=== PATIENT | male | born 1970 | race Caucasian/White ===

== ENCOUNTER 2019-06-12 12:38 | Day surgery (SDC) | payer BC ==
[2019-06-12 12:56] VITALS: RESP 16; TEMP 98.5
[2019-06-12] MEDS ORDERED: LACTATED RINGERS 1,000 ML IV ONE (13:05)
[2019-06-12] MEDS ORDERED: LIDOCAINE 1% 20 ML VIAL (10MG/ML) FOR IV START INTRADERMA ONE (13:06)
[2019-06-12] MEDS ORDERED: PROPOFOL 10 MG/ML 20 ML VIAL IV ONE (13:41)
--- NOTE | 2019-06-12 14:20 | P.PCN ---
Date of Procedure: 06/12/19 Description of Procedure: BRIEF HISTORY: Pleasant 48-year-old male who presents for outpatient evaluation with colonoscopy for family history of colon cancer and a personal history of colon polyps. The patient reports one polyp found on prior colonoscopies. He has a family history of colon cancer in his father who in his mid 30s from colon cancer. He denies any change in bowel habits, abdominal pain or blood per rectum. PROCEDURE PERFORMED: Colonoscopy with polypectomy. PREOPERATIVE DIAGNOSIS: Family history of colon cancer, personal history of colon polyp, last colonoscopy 7 years ago. ESTIMATED BLOOD LOSS: Minimal. IV sedation per Anesthesia. PROCEDURE: After informed consent was obtained, the patient, was brought into the endoscopy unit. IV sedation was administered by Anesthesia under continuous monitoring. Digital rectal examination was normal. Initially the Olympus CF-190 flexible video colonoscope was then inserted in the rectum, gradually advanced into the cecum without any difficulty. Careful examination was performed as the scope was gradually being withdrawn. Ileocecal valve and the appendiceal orifice were visualized and appeared normal. Prep was excellent. Mucosa of the cecum, ascending colon, transverse colon, descending colon, sigmoid colon, and rectum appeared normal. Diminutive sessile 2 mm descending colon polyp removed with cold forceps. Mild internal hemorrhoids. Retroflexion was performed in the rectum and no lesions were seen. The patient tolerated the procedure well. IMPRESSION: Normal-appearing colon from rectum to cecum. Diminutive descending colon polyp removed with cold forceps. RECOMMENDATIONS: Findings of this examination were discussed with the patient and his . Await pathology from polypectomy. Anticipate repeat colonoscopy in 5 years for personal is free of polyps and family history of colon cancer. Okay to resume diet and medications..
[2019-06-12 14:53] VITALS: BP 131/79; PULSE 69
== END 2019-06-12 15:09 | disposition home or self-care (01) ==
LOC: ORWHC2ENDO 12:38
PROVIDERS: ATTEND Internal Medicine
DX: Z12.11 Encounter for screening for malignant neoplasm of colon (principal); Z80.0 Family history of malignant neoplasm of digestive organs; Z86.010 Personal history of colon polyps; D12.4 Benign neoplasm of descending colon
CPT/HCPCS: 88305; 45380; J2704

== ENCOUNTER 2023-10-07 17:14 | Observation (INO) | payer BC, OTHER ==
[2023-10-07] MEDS ORDERED: SODIUM CHLORIDE 0.9% 1,000 ML IV STA (18:11)
[2023-10-07] MEDS ORDERED: MORPHINE SULFATE 4 MG/ML SYRINGE IVP STA (18:12)
[2023-10-07] MEDS ORDERED: ONDANSETRON 4 MG/2 ML VIAL IVP STA (18:34)
[2023-10-07 18:48] LABS: Basophils % (A) 0 %; Eosinophils % (A) 0 %; HCT 52.1 % (39.0-53.0); HGB 17.9 gm/dL (13.0-17.5); Lymphocytes # (A) 0.7 k/uL (1.0-4.8); Lymphocytes % (A) 4 %; MCH 30.8 pg (25.0-35.0); MCHC 34.4 g/dL (31.0-37.0); MCV 89.4 fL (80.0-100.0); Mean Platelet Volume 7.9; Monocytes # (A) 0.5 k/uL (0-1.0); Monocytes % (A) 3 %; Neutrophils # (A) 16.3 k/uL (1.3-7.7); Neutrophils % (A) 92 %; Platelet Count 331 k/uL (150-450); RBC 5.82 m/uL (4.30-5.90); RDW 12.8 % (11.5-15.5); WBC 17.7 k/uL (3.8-10.6)
[2023-10-07 19:02] LABS: ALT 43 U/L (4-49); AST 29 U/L (17-59); African American GFR (CKD) >90 (>60 ml/min/1.73 sqM); Albumin 4.9 g/dL (3.5-5.0); Alkaline Phosphatase 71 U/L (38-126); Amylase 44 U/L (30-110); Anion Gap 19 mmol/L; Blood Urea Nitrogen 19 mg/dL (9-20); Calcium 10.2 mg/dL (8.4-10.2); Carbon Dioxide 17 mmol/L (22-30); Chloride 103 mmol/L (98-107); Glucose 134 mg/dL (74-99); INR 0.9 (<1.2); Lipase 60 U/L (23-300); Magnesium 1.9 mg/dL (1.6-2.3); Non-African American GFR(CKD) >90 (>60 ml/min/1.73 sqM); Partial Thromboplastin Time 22.4 sec (22.0-30.0); Potassium 4.9 mmol/L (3.5-5.1); Prothrombin Time 10.3 sec (10.0-12.5); Sodium 139 mmol/L (137-145); Total Bilirubin 1.5 mg/dL (0.2-1.3); Total Protein 7.9 g/dL (6.3-8.2)
[2023-10-07] MEDS ORDERED: KETOROLAC 15 MG/ML 1 ML VIAL IVP STA (20:45)
--- NOTE | 2023-10-07 21:45 | US ---
EXAMINATION TYPE: US scrotum with doppler. Grayscale and color Doppler Duplex imaging performed of leonel child scrotum. DATE OF EXAM: 10/07/2023 COMPARISON: NONE CLINICAL INDICATION: Male, 53 years old with history of testicular pain; Left testicular pain and ten derness x 2 months. Pt states the pain goes up to his abdomen EXAM MEASUREMENTS: TESTICLES: Right Testicle: 5.3 x 2.9 x 2.2 cm Left Testicle: 4.8 x 3.1 x 2.1 cm EPIDIDYMIS HEAD: Right Epididymis: 1 cm Left Epididymis: 0.6 cm. Epi cyst measuring 0.6 x 0.3cm Doppler performed to assess for testicular vascularity; good bilateral color flow and waveforms are s een. There is no evidence of testicular torsion. Presence of hydroceles: No Presence of varicoceles: Yes on left side IMPRESSION: 1. No evidence of testicular torsion or mass. 2. Small left epididymal cyst. 3. Left-sided varicocele.
--- NOTE | 2023-10-07 21:50 | XR ---
EXAMINATION TYPE: XR chest 2V DATE OF EXAM: 10/07/2023 7:19 PM CLINICAL INDICATION:Male, 53 years old with history of Chest Pain; [facility] COMPARISON: None TECHNIQUE: XR chest 2V. Frontal PA and lateral views of the chest. FINDINGS: Lines/Tubes: EKG leads overlie the chest. No indwelling lines are seen. Heart/mediastinum: Cardiomediastinal silhouette is well defined. Heart appears mildly enlarged. Med iastinum appears normal. Pulmonary vascularity: Not increased, Lungs/Pleura: Low lung volumes with bibasilar opacities likely due to atelectasis. There is otherwise no evidence of pleural effusion, focal consolidation, or pneumothorax. Musculoskeletal: No acute osseous abnormality demonstrated in the limits of the exam. Degenerative c hanges of the spine and shoulders. Other findings: None. IMPRESSION: Low lung volume exam with hypoventilatory changes. Otherwise no acute finding.
--- NOTE | 2023-10-07 22:07 | CT ---
EXAMINATION TYPE: CT abdomen pelvis w con CT DLP: 1317.7 mGycm, Automated exposure control for dose reduction was used. DATE OF EXAM: 10/07/2023 8:41 PM COMPARISON: None CLINICAL INDICATION:Male, 53 years old with history of abdominal pain; Lower left abdominal/scrotum p ain that radiates down left leg x 2 months TECHNIQUE: Axial CT of the abdomen and pelvis. Sagittal and coronal reformats were created on a [employer] workstation. Contrast used:100 mL of Isovue 300 with IV Contrast, (none if empty) Oral contrast used: without Oral Contrast (none if empty) FINDINGS: LOWER CHEST: Mild dependent atelectasis. Tiny 2 mm subpleural nodule in each lung base. No pleural ef fusion. Heart size upper normal. Moderate coronary artery calcifications. ABDOMEN LIVER: Unremarkable GALLBLADDER AND BILE DUCTS: Unremarkable. PANCREAS: Unremarkable. SPLEEN: Unremarkable. ADRENAL GLANDS: Unremarkable. KIDNEYS AND URETERS: Kidneys enhance symmetrically. There is no evidence of hydronephrosis. PELVIS BLADDER: Unremarkable REPRODUCTIVE: Nonenlarged prostate. Pelvic phleboliths. ABDOMEN & PELVIS STOMACH AND BOWEL: Stomach and small bowel are nondistended, no evidence of obstruction. Appendix is not identified with certainty, however there is no inflammatory process seen in the RLQ . Some stool throughout the colon without focal inflammatory process seen. Several scattered colonic diverticula without evidence of diverticulitis. PERITONEUM/RETROPERITONEUM: No evidence of pneumoperitoneum or free fluid. Debra mesentery appearance in the abdomen, with several associated nonenlarged nodes. VASCULATURE: Mild calcification of the aorta. No evidence of aneurysm. MUSCULOSKELETAL: No acute osseous abnormalities. Mild degenerative changes of the visualized spine. LYMPH NODES: No gross evidence for lymphadenopathy. SOFT TISSUE/ABDOMINAL WALL: Small fat-containing left inguinal hernia. IMPRESSION: 1. No evidence of inflammatory or obstructive process in the scope of the exam. 2. Debra mesentery appearance in the abdomen. Differential considerations are broad, but include: me senteric panniculitis, idiopathic, cirrhosis, sequela of adjacent inflammation (including appendiciti s and IBD/Crohn's disease), mesenteric venous thrombosis, rarely neoplasms (such as lymphoma or infil tration by GI adenocarcinoma).
[2023-10-07] MEDS ORDERED: cefTRIAXone IN SWFI 1,000 MG/10 ML SYRINGE IVP STA (22:35)
[2023-10-07] MEDS ORDERED: AZITHROMYCIN 500 MG in SODIUM CHLORIDE 0.9% 250 ML IVPB STA (22:35)
[2023-10-07] MEDS ORDERED: NALOXONE 0.4 MG/ML 1 ML VIAL IV PRN (22:38)
[2023-10-07] MEDS ORDERED: MORPHINE SULFATE 4 MG/ML SYRINGE IV PRN (22:38)
[2023-10-07] MEDS ORDERED: ACETAMINOPHEN TAB 325 MG TAB PO PRN (22:38)
[2023-10-07] MEDS ORDERED: ONDANSETRON 4 MG/2 ML VIAL IVP PRN (22:38)
[2023-10-07] MEDS ORDERED: KETOROLAC 15 MG/ML 1 ML VIAL IVP PRN (22:38)
[2023-10-07] MEDS ORDERED: SODIUM CHLORIDE 0.9% 1,000 ML IV SCH (22:45)
--- NOTE | 2023-10-07 23:11 | ED ---
General Adult HPI - General Chief complaint: Arrhythmia/Palpitations Stated complaint: vomiting abd pain Time Seen by Provider: 10/07/23 18:00 Source: patient Mode of arrival: wheelchair Limitations: no limitations - History of Present Illness Initial comments: 53-year-old male presenting with chief complaint of "my heart is racing". Patient states that he has had episodes like this in the past and he is normally able to calm himself, however today the palpitations were not stopping. Patient has also been experiencing several episodes of vomiting ever since waking up today. He admits to vague abdominal pain as well as left-sided groin pain. He admits to shortness of breath. He denies chest pain. No hematemesis, hematochezia, melena. No diarrhea or constipation. No fevers or chills. No cough, congestion, sore throat. - Related Data Home Medications Medication Instructions Recorded Confirmed Cholecalciferol [Vitamin D3 (25 25 mcg PO HS 10/07/23 10/07/23 Mcg = 1000 Iu)] Fluticasone Nasal [place] [Flonase 1 spray EA NOSTRIL DAILY PRN 10/07/23 10/07/23 Nasal [place]] Multivitamins, Thera [Multivitamin 1 tab PO HS 10/07/23 10/07/23 (formulary)] diphenhydrAMINE HCL [Benadryl] 25 mg PO HS 10/07/23 10/07/23 Allergies Allergy/AdvReac Type Severity Reaction Status Date / Time No Known Allergies Allergy Verified 10/07/23 19:36 Review of Systems ROS Statement: Those systems with pertinent positive or pertinent negative responses have been documented in the HPI. ROS Other: All systems not noted in ROS Statement are negative. Past Medical History Past Medical History: No Reported History History of Any Multi-Drug Resistant Organisms: None Reported Past Surgical History: Orthopedic Surgery Additional Past Surgical History / Comment(s): RIGHT ROTATOR CUFF. Past Anesthesia/Blood Transfusion Reactions: No Reported Reaction Past Psychological History: No Psychological Hx Reported Smoking Status: Never smoker Past Alcohol Use History: Rare Past Drug Use History: None Reported General Exam Limitations: no limitations General appearance: alert, in no apparent distress Head exam: Present: atraumatic, normocephalic, normal inspection Eye exam: Present: normal appearance, EOMI Neck exam: Present: normal inspection Respiratory exam: Present: normal lung sounds bilaterally. Absent: respiratory distress, wheezes, rales, rhonchi, stridor Cardiovascular Exam: Present: normal rhythm, tachycardia, normal heart sounds. Absent: systolic murmur, diastolic murmur, rubs, gallop, clicks GI/Abdominal exam: Present: soft, tenderness. Absent: distended, guarding, rebound, rigid Neurological exam: Present: alert, oriented X3 Psychiatric exam: Present: normal affect, normal mood Skin exam: Present: warm, dry, intact, normal color. Absent: rash Course Vital Signs 10/07/23 10/07/23 10/07/23 17:15 18:39 19:10 Temperature 99.1 F 99.2 F Pulse Rate 143 H 122 H 116 H Respiratory 16 22 16 Rate Blood Pressure 137/84 122/94 108/84 O2 Sat by Pulse 99 97 92 L Oximetry 10/07/23 10/07/23 10/07/23 19:40 20:10 20:20 Temperature Pulse Rate 123 H 124 H 121 H Respiratory 25 H 27 H 28 H Rate Blood Pressure 124/85 123/79 99/77 O2 Sat by Pulse 90 L 93 L 92 L Oximetry 10/07/23 20:50 Temperature Pulse Rate 118 H Respiratory 23 Rate Blood Pressure 126/81 O2 Sat by Pulse 94 L Oximetry Medical Decision Making - Medical Decision Making Was pt. sent in by a medical professional or institution (RAHUL Manuel, MACHINERY REPAIR MAINTENANCE SUPERVISOR, urgent care, hospital, or alf...) When possible be specific @ -No Did you speak to anyone other than the patient for history (EMS, parent, family, police, friend...)? What history was obtained from this source @ -No Did you review nursing and triage notes (agree or disagree)? Why? @ -I reviewed and agree with nursing and triage notes Were old charts reviewed (outside hosp., previous admission, EMS record, old EKG, old radiological studies, urgent care reports/EKG's, alf records)? Report findings @ -No old charts were reviewed Differential Diagnosis (chest pain, altered mental status, abdominal pain women, abdominal pain men, vaginal bleeding, weakness, fever, dyspnea, syncope, headache, dizziness, GI bleed, back pain, seizure, CVA, palpatations, mental health, musculoskeletal)? @ -Differential Palpitations Ventricular arrhythmias, atrial arrhythmias, myocardial infarction, anemia, thyrotoxicosis, electrolyte imbalance, hypokalemia, pulmonary embolism, pulmonary disease, drugs, alcohol, anxiety, stress.... This is not meant to be an all-inclusive list. EKG interpreted by me (3pts min.). @ -Sinus tachycardia ventricular rate 141. MA interval 124. QRS 96. QT 295. QTC 377. X-rays interpreted by me (1pt min.). @ -Chest x-ray shows low lung volume exam with hypoventilatory changes. O therwise no acute findings CT interpreted by me (1pt min.). @ -No evidence of inflammatory or obstructive process within the scope of the exam. Debra mesentery appearance in the abdomen. Differential considerations are broad, but includes mesenteric panniculitis, idiopathic, cirrhosis, sequelae of adjacent inflammation, mesenteric venous thrombosis, rarely neoplasms U/S interpreted by me (1pt. min.). @ -No evidence of testicular torsion or mass. Small left epididymal cyst. Small left-sided varicocele What testing was considered but not performed or refused? (CT, X-rays, U/S, labs)? Why? @ -None What meds were considered but not given or refused? Why? @ -None Did you discuss the management of the patient with other professionals (professionals i.e. , PA, MACHINERY REPAIR MAINTENANCE SUPERVISOR, lab, RT, psych nurse, secondary social studies teacher, test borer, teacher, ship's electronic warfare officer, transplant case manager)? Give summary @ -I spoke with Suyapa Campa from [facility] who accepted admission Was smoking cessation discussed for >3mins.? @ -No Was critical care preformed (if so, how long)? @ -No Were there social determinants of health that impacted care today? How? (Ab elessness, low income, unemployed, alcoholism, drug addiction, transportation, low edu. Level, literacy, decrease access to med. care, half-way, rehab)? @ -No Was there de-escalation of care discussed even if they declined (Discuss DNR or withdrawal of care, Hospice)? DNR status @ -No What co-morbidities impacted this encounter? (DM, HTN, Smoking, COPD, CAD, Cancer, CVA, ARF, Chemo, Hep., AIDS, mental health diagnosis, sleep apnea, morbid obesity)? @ -None Was patient admitted / discharged? Hospital course, mention meds given and route, prescriptions, significant lab abnormalities, going to OR and other pertinent info. @ -53-year-old male presenting with chief complaint of my heart is racing, shortness of breath, vomiting, vague abdominal pain. History and physical examination are conducted. Patient is initially tachycardic ranging from the 120s to 140s, he is afebrile. Abdomen is diffusely tender. WBC 17.7. Negative d-dimer and troponin. He is negative for influenza, RSV, and Covid. Chest x- ray shows hypoventilatory changes. Scrotal ultrasound shows no evidence of torsion. CT of the abdomen and pelvis shows no evidence of inflammatory or obst ructive process. On reassessment patient remains tachycardic, he is mildly hypoxic with oxygen saturation in the low 90%'s, and he is mildly tachypneic. Given the patient's unexplained tachycardia and leukocytosis, blood cultures and pro-calcitonin will be drawn. Patient will be admitted for observation. He is treated empirically with Rocephin and azithromycin. Patient is agreeable with this plan. I discussed this case with my attending Dr. Cadena Undiagnosed new problem with uncertain prognosis? @ -No Drug Therapy requiring intensive monitoring for toxicity (Heparin, Nitro, Insulin, Cardizem)? @ -No Were any procedures done? @ -No Diagnosis/symptom? @ -Unexplained tachycardia Acute, or Chronic, or Acute on Chronic? @ -Acute Uncomplicated (without systemic symptoms) or Complicated (systemic symptoms)? @ -Complicated Side effects of treatment? @ -No Exacerbation, Progression, or Severe Exacerbation? @ -No Poses a threat to life or bodily function? How? (Chest pain, [place], CA, pneumonia, PE, COPD, DKA, ARF, appy, cholecystitis, CVA, Diverticulitis, Homicidal, S uicidal, threat to staff... and all critical care pts) @ -Yes Diagnosis/symptom? @Leukocytosis Acute, or Chronic, or Acute on Chronic? @Acute Uncomplicated (without systemic symptoms) or Complicated (systemic symptoms)? @Complicated Side effects of treatment? @ none Exacerbation, Progression, or Severe Exacerbation] @ no Poses a threat to life or bodily function? @Yes Diagnosis/symptom? @Hypoxia Acute, or Chronic, or Acute on Chronic? @Acute Uncomplicated (without systemic symptoms) or Complicated (systemic symptoms)? @Complicating Side effects of treatment? @ none Exacerbation, Progression, or Severe Exacerbation] @ no Poses a threat to life or bodily function? @Yes - Lab Data Result diagrams: 10/07/23 18:32 10/07/23 18:32 Lab Results 10/07/23 10/07/23 10/07/23 Range/Units 18:32 18:32 18:32 WBC 17.7 H (3.8-10.6) k/uL RBC 5.82 (4.30-5.90) m/uL Hgb 17.9 H (13.0-17.5) gm/dL Hct 52.1 (39.0-53.0) % MCV 89.4 (80.0-100.0) fL MCH 30.8 (25.0-35.0) pg MCHC 34.4 (31.0-37.0) g/dL RDW 12.8 (11.5-15.5) % Plt Count 331 (150-450) k/uL MPV 7.9 Neutrophils % 92 % Lymphocytes % 4 % Monocytes % 3 % Eosinophils % 0 % Basophils % 0 % Neutrophils # 16.3 H (1.3-7.7) k/uL Lymphocytes # 0.7 L (1.0-4.8) k/uL Monocytes # 0.5 (0-1.0) k/uL Eosinophils # 0.0 (0-0.7) k/uL Basophils # 0.0 (0-0.2) k/uL PT 10.3 (10.0-12.5) sec INR 0.9 (<1.2) APTT 22.4 (22.0-30.0) sec D-Dimer 0.35 (<0.60) mg/L FEU Sodium 139 (137-145) mmol/L Potassium 4.9 (3.5-5.1) mmol/L Chloride 103 (98-107) mmol/L Carbon Dioxide 17 L (22-30) mmol/L Anion Gap 19 mmol/L BUN 19 (9-20) mg/dL Creatinine 0.91 (0.66-1.25) mg/dL Est GFR (CKD-EPI)AfAm >90 (>60 ml/min/1.73 sqM) Est GFR (CKD-EPI)NonAf >90 (>60 ml/min/1.73 sqM) Glucose 134 H (74-99) mg/dL Calcium 10.2 (8.4-10.2) mg/dL Magnesium 1.9 (1.6-2.3) mg/dL Total Bilirubin 1.5 H (0.2-1.3) mg/dL AST 29 (17-59) U/L ALT 43 (4-49) U/L Alkaline Phosphatase 71 (38-126) U/L Troponin I (0.000-0.034) ng/mL Total Protein 7.9 (6.3-8.2) g/dL Albumin 4.9 (3.5-5.0) g/dL Amylase 44 (30-110) U/L Lipase 60 (23-300) U/L Influenza Type A (PCR) (Not Detectd) Influenza Type B (PCR) (Not Detectd) RSV (PCR) (Not Detectd) SARS-CoV-2 (PCR) (Not Detectd) 10/07/23 10/07/23 Range/Units 18:32 18:51 WBC (3.8-10.6) k/uL RBC (4.30-5.90) m/uL Hgb (13.0-17.5) gm/dL Hct (39.0-53.0) % MCV (80.0-100.0) fL MCH (25.0-35.0) pg MCHC (31.0-37.0) g/dL RDW (11.5-15.5) % Plt Count (150-450) k/uL MPV Neutrophils % % Lymphocytes % % Monocytes % % Eosinophils % % Basophils % % Neutrophils # (1.3-7.7) k/uL Lymphocytes # (1.0-4.8) k/uL Monocytes # (0-1.0) k/uL Eosinophils # (0-0.7) k/uL Basophils # (0-0.2) k/uL PT (10.0-12.5) sec INR (<1.2) APTT (22.0-30.0) sec D-Dimer (<0.60) mg/L FEU Sodium (137-145) mmol/L Potassium (3.5-5.1) mmol/L Chloride (98-107) mmol/L Carbon Dioxide (22-30) mmol/L Anion Gap mmol/L BUN (9-20) mg/dL Creatinine (0.66-1.25) mg/dL Est GFR (CKD-EPI)AfAm (>60 ml/min/1.73 sqM) Est GFR (CKD-EPI)NonAf (>60 ml/min/1.73 sqM) Glucose (74-99) mg/dL Calcium (8.4-10.2) mg/dL Magnesium (1.6-2.3) mg/dL Total Bilirubin (0.2-1.3) mg/dL AST (17-59) U/L ALT (4-49) U/L Alkaline Phosphatase (38-126) U/L Troponin I <0.012 (0.000-0.034) ng/mL Total Protein (6.3-8.2) g/dL Albumin (3.5-5.0) g/dL Amylase (30-110) U/L Lipase (23-300) U/L Influenza Type A (PCR) Not Detected (Not Detectd) Influenza Type B (PCR) Not Detected (Not Detectd) RSV (PCR) Not Detected (Not Detectd) SARS-CoV-2 (PCR) Not Detected (Not Detectd) Disposition Clinical Impression: Tachycardia, Leukocytosis, Hypoxia Disposition: ADMITTED IP TO THIS HOSP Condition: Fair Referrals: Joseph Lopez MD [Primary Care Provider] - 1-2 days Time of Disposition: 23:10
[2023-10-08 05:05] LABS: Amorphous Sediment,Urine Rare /hpf; Appearance,Urine Clear (Clear); Bacteria,Urine Rare /hpf; Bilirubin,Urine Negative (Negative); Blood,Urine Negative (Negative); Color,Urine Yellow; Glucose,Urine (UA) Negative (Negative); Hyaline Casts,Urine 3 /lpf (0-2); Ketones,Urine Negative (Negative); Leukocyte Esterase,Urine Negative (Negative); Mucus,Urine Few /hpf; Nitrite,Urine Negative (Negative); Protein,Urine 1+ (Negative); RBC,Urine 1 /hpf (0-5); Squamous Epithelial Cell,Urine <1 /hpf (0-4); Urobilinogen,Urine <2.0 mg/dL (<2.0); WBC,Urine 3 /hpf (0-5)
[2023-10-08] MEDS ORDERED: FLUTICASONE 50MCG/SPRAY NASAL 16GM EA NOSTRIL PRN (05:15)
[2023-10-08 06:12] LABS: Specific Gravity,Urine >1.050 (1.001-1.035)
[2023-10-08 07:14] LABS: Basophils % (A) 0 %; Eosinophils % (A) 0 %; HCT 42.4 % (39.0-53.0); Lymphocytes # (A) 0.4 k/uL (1.0-4.8); Lymphocytes % (A) 5 %; MCH 31.3 pg (25.0-35.0); MCHC 33.8 g/dL (31.0-37.0); MCV 92.5 fL (80.0-100.0); Mean Platelet Volume 6.9; Monocytes # (A) 0.3 k/uL (0-1.0); Monocytes % (A) 4 %; Neutrophils # (A) 7.4 k/uL (1.3-7.7); Neutrophils % (A) 90 %; Platelet Count 232 k/uL (150-450); RBC 4.58 m/uL (4.30-5.90); RDW 13.1 % (11.5-15.5); WBC 8.2 k/uL (3.8-10.6)
[2023-10-08 07:15] LABS: HGB 14.3 gm/dL (13.0-17.5)
[2023-10-08] MEDS ORDERED: PANTOPRAZOLE 40 MG/10 ML VIAL IVP SCH (11:15)
--- NOTE | 2023-10-08 11:20 | P.HPIM ---
History of Present Illness 53-year-old a pleasant male came in with compensative for the racing heart found to have sinus tachycardia. Patient is a day before had flulike symptoms along with abdominal pain nausea patient abdominal pain is very specific in the right lower abdomen along with the suprapubic area. Patient was also diagnosed with varicocele for which patient is supposed to see urology as an outpatient. Patient denied any chest pain regarding his palpitations patient has sinus tachycardia which improved with IV fluids. Patient TSH is within normal limits patient's d-dimer is negative patient is bit hypoxic and also snores probably sleep apnea. CT of the chest and abdomen were obtained which showed significant nonspecific findings showing hazy mesentery with a differential being mesenteric panic colitis, Crohn's disease possibility of which is extremely low and patient clinically doesn't appear to have cirrhosis plus one of the differentials on the CAT scan. Patient had a low-grade fever which resolved at this time patient was given a Rocephin chest x-ray did not show any pneumonia area is within normal limits abdominal pain completely resolved patient may have had viral illness which resolved at this time. Patient is negative for COVID-19, influenza, RSV. Was having nausea vomiting which led to dehydration and tach sinus tachycardia. Patient was evaluated extensively in the past by cardiology with a Holter monitor at that time except for sinus tachycardia no other significant abnormality was appreciated. Patient had an ultrasound of the scrotum which showed varicocele patient's scrotal pain resolved at this time patient doesn't have any significant pain tenderness or swelling behind the scrotum possibility of epididymitis is low. REVIEW OF SYSTEMS: CONSTITUTIONAL: No fever, no malaise, no fatigue. HEENT: No recent visual problems or hearing problems. Denied any sore throat. CARDIOVASCULAR: No chest pain, orthopnea, PND, no palpitations, no syncope. PULMONARY: No shortness of breath, no cough, no hemoptysis. GASTROINTESTINAL: As mentioned in HPI NEUROLOGICAL: No headaches, no weakness, no numbness. HEMATOLOGICAL: Denies any bleeding or petechiae. GENITOURINARY: Denies any burning micturition, frequency, or urgency. MUSCULOSKELETAL/RHEUMATOLOGICAL: Denies any joint pain, swelling, or any muscle pain. ENDOCRINE: Denies any polyuria or polydipsia. The rest of the 14-point review of systems is negative. PHYSICAL EXAMINATION: GENERAL: The patient is alert and oriented x3, not in any acute distress. Obesity HEENT: Pupils are round and equally reacting to light. EOMI. No scleral icterus. No conjunctival pallor. Normocephalic, atraumatic. No pharyngeal erythema. No thyromegaly. CARDIOVASCULAR: S1 and S2 present. No murmurs, rubs, or gallops. PULMONARY: Chest is clear to auscultation, no wheezing or crackles. ABDOMEN: Soft, nontender, nondistended, normoactive bowel sounds. No palpable organomegaly. MUSCULOSKELETAL: No joint swelling or deformity. EXTREMITIES: No cyanosis, clubbing, or pedal edema. NEUROLOGICAL: Gross neurological examination did not reveal any focal deficits. SKIN: No rashes. Assessment and plan -Generalized body aches, abdominal pain, nausea vomiting, fever: Secondary to viral illness which probably resolved patient will be given prescription for Protonix for gastritis for a week will be discharged today -Sinus tachycardia secondary to nausea vomiting which improved at this time no further intervention is necessary patient will follow with cardiology as an outpatient. Rule out pulmonary embolism with the d-dimer -Abdominal pain with the above-mentioned nonspecific findings on the computed tomography scan will consult general surgery, Gen. surgical ears patient will be discharged today my suspicion is low for mesenteric thrombosis which was also circumferentially for the CT findings. His abdominal pain completely resolved at this time -Varicocele follow-up with urology as an outpatient -Mild hypoxia will be discontinue oxygen will ablate the patient this may be secondary to some restrictive lung disease which is mild may be secondary to sleep apnea and obesity patient will benefit from sleep study as an outpatient. We will be discharged today if cleared by general surgery. Patient will follow with PCP as an outpatient Past Medical History Past Medical History: No Reported History History of Any Multi-Drug Resistant Organisms: None Reported Past Surgical History: Orthopedic Surgery Additional Past Surgical History / Comment(s): RIGHT ROTATOR CUFF. Past Anesthesia/Blood Transfusion Reactions: No Reported Reaction Past Psychological History: No Psychological Hx Reported Smoking Status: Never smoker Past Alcohol Use History: Rare Past Drug Use History: None Reported Medications and Allergies Home Medications Medication Instructions Recorded Confirmed Type Cholecalciferol [Vitamin D3 (25 25 mcg PO HS 10/07/23 10/07/23 History Mcg = 1000 Iu)] Fluticasone Nasal [place] [Flonase 1 spray EA NOSTRIL DAILY PRN 10/07/23 10/07/23 History Nasal [place]] Multivitamins, Thera [Multivitamin 1 tab PO HS 10/07/23 10/07/23 History (formulary)] diphenhydrAMINE HCL [Benadryl] 25 mg PO HS 10/07/23 10/07/23 History Omeprazole [PriLOSEC] 40 mg PO AC-BRKFST #7 cap 10/08/23 Rx Allergies Allergy/AdvReac Type Severity Reaction Status Date / Time No Known Allergies Allergy Verified 10/07/23 19:36 Physical Exam Vitals: Vital Signs Temp Pulse Pulse Resp BP BP Pulse Ox 10/08/23 09:55 98.3 F 98 20 121/70 94 L 10/08/23 06:14 100 F H 97 19 107/56 98 10/08/23 04:30 98 24 109/66 93 L 10/08/23 03:30 102 H 20 101/55 97 10/08/23 02:30 105 H 17 112/63 98 10/08/23 02:00 104 H 14 115/68 98 10/08/23 01:30 105 H 29 H 95/67 95 10/08/23 00:32 95 10/08/23 00:20 98 20 99/62 93 L 10/07/23 23:30 107 H 18 105/69 92 L 10/07/23 22:30 108 H 25 H 109/70 93 L 10/07/23 22:00 106 H 22 112/73 92 L 10/07/23 21:30 112 H 27 H 123/81 93 L 10/07/23 21:00 112 H 27 H 126/81 93 L 10/07/23 20:50 118 H 23 126/81 94 L 10/07/23 20:20 121 H 28 H 99/77 92 L 10/07/23 20:10 124 H 27 H 123/79 93 L 10/07/23 19:40 123 H 25 H 124/85 90 L 10/07/23 19:10 116 H 16 108/84 92 L 10/07/23 18:39 99.2 F 122 H 22 122/94 97 10/07/23 17:15 99.1 F 143 H 16 137/84 99 Intake and Output 10/07/23 10/08/23 10/08/23 22:59 06:59 14:59 Other: Weight 102.058 kg 102.058 kg Results CBC & Chem 7: 10/08/23 06:45 10/07/23 18:32 Labs: Abnormal Lab Results - Last 24 Hours (Table) 10/07/23 10/07/23 10/07/23 Range/Units 18:32 18:32 18:32 WBC 17.7 H (3.8-10.6) k/uL Hgb 17.9 H (13.0-17.5) gm/dL Neutrophils # 16.3 H (1.3-7.7) k/uL Lymphocytes # 0.7 L (1.0-4.8) k/uL Carbon Dioxide 17 L (22-30) mmol/L Glucose 134 H (74-99) mg/dL Total Bilirubin 1.5 H (0.2-1.3) mg/dL Procalcitonin 0.34 H (0.02-0.09) ng/mL Ur Specific [place] (1.001-1.035) Urine Protein (Negative) Amorphous Sediment (None) /hpf Urine Bacteria (None) /hpf Hyaline Casts (0-2) /lpf Urine Mucus (None) /hpf 10/08/23 10/08/23 Range/Units 04:00 06:45 WBC (3.8-10.6) k/uL Hgb (13.0-17.5) gm/dL Neutrophils # (1.3-7.7) k/uL Lymphocytes # 0.4 L (1.0-4.8) k/uL Carbon Dioxide (22-30) mmol/L Glucose (74-99) mg/dL Total Bilirubin (0.2-1.3) mg/dL Procalcitonin (0.02-0.09) ng/mL Ur Specific [place] >1.050 H (1.001-1.035) Urine Protein 1+ H (Negative) Amorphous Sediment Rare H (None) /hpf Urine Bacteria Rare H (None) /hpf Hyaline Casts 3 H (0-2) /lpf Urine Mucus Few H (None) /hpf Thrombosis Risk Factor Assmnt - Choose All That Apply Each Factor Represents 1 point: Age 41-60 years Thrombosis Risk Factor Assessment Total Risk Factor Score: 1 Thrombosis Risk Factor Assessment Level: Low Risk
--- NOTE | 2023-10-08 11:21 | P.DS ---
Providers Date of admission: 10/07/23 22:38 Attending physician: Eugenio Kern Consults: 10/08/23 11:06 Consult Physician Routine Consulting Provider: Jerald Thomas Consult Reason/Comments: abdominal pain, etiology unclear Do you want consulting provider notified?: Yes Primary care physician: [facility] Course: 53-year-old a pleasant male came in with compensative for the racing heart found to have sinus tachycardia. Patient is a day before had flulike symptoms along with abdominal pain nausea patient abdominal pain is very specific in the right lower abdomen along with the suprapubic area. Patient was also diagnosed with varicocele for which patient is supposed to see urology as an outpatient. Patient denied any chest pain regarding his palpitations patient has sinus tachycardia which improved with IV fluids. Patient TSH is within normal limits patient's d-dimer is negative patient is bit hypoxic and also snores probably sleep apnea. CT of the chest and abdomen were obtained which showed significant nonspecific findings showing hazy mesentery with a differential being mesenteric panic colitis, Crohn's disease possibility of which is extremely low and patient clinically doesn't appear to have cirrhosis plus one of the differentials on the CAT scan. Patient had a low-grade fever which resolved at this time patient was given a Rocephin chest x-ray did not show any pneumonia area is within normal limits abdominal pain completely resolved patient may have had viral illness which resolved at this time. Patient is negative for COVID-19, influenza, RSV. Was having nausea vomiting which led to dehydration and tach sinus tachycardia. Patient was evaluated extensively in the past by cardiology with a Holter monitor at that time except for sinus tachycardia no other significant abnormality was appreciated. Patient had an ultrasound of the scrotum which showed varicocele patient's scrotal pain resolved at this time patient doesn't have any significant pain tenderness or swelling behind the scrotum possibility of epididymitis is low. REVIEW OF SYSTEMS: CONSTITUTIONAL: No fever, no malaise, no fatigue. HEENT: No recent visual problems or hearing problems. Denied any sore throat. CARDIOVASCULAR: No chest pain, orthopnea, PND, no palpitations, no syncope. PULMONARY: No shortness of breath, no cough, no hemoptysis. GASTROINTESTINAL: As mentioned in HPI NEUROLOGICAL: No headaches, no weakness, no numbness. HEMATOLOGICAL: Denies any bleeding or petechiae. GENITOURINARY: Denies any burning micturition, frequency, or urgency. MUSCULOSKELETAL/RHEUMATOLOGICAL: Denies any joint pain, swelling, or any muscle pain. ENDOCRINE: Denies any polyuria or polydipsia. The rest of the 14-point review of systems is negative. PHYSICAL EXAMINATION: GENERAL: The patient is alert and oriented x3, not in any acute distress. Obesity HEENT: Pupils are round and equally reacting to light. EOMI. No scleral icterus. No conjunctival pallor. Normocephalic, atraumatic. No pharyngeal erythema. No thyromegaly. CARDIOVASCULAR: S1 and S2 present. No murmurs, rubs, or gallops. PULMONARY: Chest is clear to auscultation, no wheezing or crackles. ABDOMEN: Soft, nontender, nondistended, normoactive bowel sounds. No palpable organomegaly. MUSCULOSKELETAL: No joint swelling or deformity. EXTREMITIES: No cyanosis, clubbing, or pedal edema. NEUROLOGICAL: Gross neurological examination did not reveal any focal deficits. SKIN: No rashes. Assessment and plan -Generalized body aches, abdominal pain, nausea vomiting, fever: Secondary to viral illness which probably resolved patient will be given prescription for Protonix for gastritis for a week will be discharged today -Sinus tachycardia secondary to nausea vomiting which improved at this time no further intervention is necessary patient will follow with cardiology as an outpatient. Rule out pulmonary embolism with the d-dimer -Abdominal pain with the above-mentioned nonspecific findings on the computed tomography scan will consult general surgery, Gen. surgical ears patient will be discharged today my suspicion is low for mesenteric thrombosis which was also circumferentially for the CT findings. His abdominal pain completely resolved at this time -Varicocele follow-up with urology as an outpatient -Mild hypoxia will be discontinue oxygen will ablate the patient this may be secondary to some restrictive lung disease which is mild may be secondary to sleep apnea and obesity patient will benefit from sleep study as an outpatient. We will be discharged today if cleared by general surgery. Patient will follow with PCP as an outpatient Patient Condition at Discharge: Fair Plan - Discharge Summary Discharge Rx Participant: No New Discharge Prescriptions: New Omeprazole [PriLOSEC] 40 mg PO AC-BRKFST #7 cap No Action diphenhydrAMINE HCL [Benadryl] 25 mg PO HS Cholecalciferol [Vitamin D3 (25 Mcg = 1000 Iu)] 25 mcg PO HS Fluticasone Nasal [place] [Flonase Nasal [place]] 1 spray EA NOSTRIL DAILY PRN PRN Reason: Allergy Symptoms Multivitamins, Thera [Multivitamin (formulary)] 1 tab PO HS Discharge Medication List Cholecalciferol [Vitamin D3 (25 Mcg = 1000 Iu)] 25 mcg PO HS 10/07/23 [History] Fluticasone Nasal [place] [Flonase Nasal [place]] 1 spray EA NOSTRIL DAILY PRN 10/07/23 [History] Multivitamins, Thera [Multivitamin (formulary)] 1 tab PO HS 10/07/23 [History] diphenhydrAMINE HCL [Benadryl] 25 mg PO HS 10/07/23 [History] Omeprazole [PriLOSEC] 40 mg PO AC-BRKFST #7 cap 10/08/23 [Rx] Follow up Appointment(s)/Referral(s): Casa Quigley MD [STAFF PHYSICIAN] - 1 Week Joseph Lopez MD [Primary Care Provider] - 3 Days Discharge Disposition: HOME SELF-CARE
--- NOTE | 2023-10-08 12:46 | P.GSCN ---
History of Present Illness Consult date: 10/08/23 History of present illness: CHIEF COMPLAINT: Nausea and vomiting HISTORY OF PRESENT ILLNESS: This is a 53-year-old male who presented with nausea vomiting and abdominal pain. Patient reports symptoms started at 11 AM. He also reports he felt his heart racing became concerned and came into the ER for evaluation. Patient reports that the vomiting has now resolved. He had was able to tolerate diet. Abdominal pain is improved as well. He reports that he's been having normal bowel movements. He did have a low-grade fever. Computed tomography scan of the abdomen and pelvis no evidence of inflammatory obstructive process. Patient reports that he has a known left inguinal hernia that is currently reduced. She reports that the pain does go down into the left testicle. They have done an ultrasound had shown a left-sided varicocele. No evidence of testicular torsion or mass. Surgical service consulted for abdominal pain. PAST MEDICAL HISTORY: none PAST SURGICAL HISTORY: Rotator cuff repair MEDICATIONS: See below ALLERGIES: See below SOCIAL HISTORY: No illicit drug use. REVIEW OF SYSTEMS: CONSTITUTIONAL: Denies fever or chills. HEENT: Denies blurred vision, vision changes, or eye pain. Denies hemoptysis CARDIOVASCULAR: Denies chest pain or pressure. RESPIRATORY: No shortness of breath. GASTROINTESTINAL: See HPI for pertinent findings HEMATOLOGIC: Denies bleeding disorders. GENITOURINARY: Denies any blood in urine or increased urinary frequency. SKIN: Denies pruitis. Denies rash. PHYSICAL EXAM: VITAL SIGNS: Reviewed GENERAL: Well-developed in no acute distress. HEENT: No sclera icterus. Extraocular movements grossly intact. Moist buccal mucosa. Head is atraumatic, normocephalic. No nasal drainage. ABDOMEN: Soft. Nondistended. Nontender. Left inguinal hernia reduced. Small ventral hernia reducible. NEUROLOGIC: Alert and oriented. Cranial nerves II through XII grossly intact. LABORATORY DATA: WBC 17.7 down to 8.2 Hgb 14.3 platelets 232 INR 0.9 d-dimer 0.35 Sodium 139 potassium 4.9 creatinine 0.91 IMAGING: Computed tomography scan abdomen and pelvis no evidence of inflammatory obstructive process. Small fat-containing left inguinal hernia. Debra mesentery appearance in the abdomen. Scrotal ultrasound as stated above ASSESSMENT: 1. Gastroenteritis 2. Abdominal pain with nausea and vomiting resolved 3. Left fat-containing inguinal hernia. Reducible PLAN: -Patient can be discharged from surgical standpoint -Patient follow-up with Dr. Thomas outpatient -Continue regular diet Physician Surgical Consultant note has been reviewed by physician. Signing provider agrees with the documented findings, assessment, and plan of care. Past Medical History Past Medical History: No Reported History History of Any Multi-Drug Resistant Organisms: None Reported Past Surgical History: Orthopedic Surgery Additional Past Surgical History / Comment(s): RIGHT ROTATOR CUFF. Past Anesthesia/Blood Transfusion Reactions: No Reported Reaction Past Psychological History: No Psychological Hx Reported Smoking Status: Never smoker Past Alcohol Use History: Rare Past Drug Use History: None Reported Medications and Allergies Home Medications Medication Instructions Recorded Confirmed Type Cholecalciferol [Vitamin D3 (25 25 mcg PO HS 10/07/23 10/07/23 History Mcg = 1000 Iu)] Fluticasone Nasal [place] [Flonase 1 spray EA NOSTRIL DAILY PRN 10/07/23 10/07/23 History Nasal [place]] Multivitamins, Thera [Multivitamin 1 tab PO HS 10/07/23 10/07/23 History (formulary)] diphenhydrAMINE HCL [Benadryl] 25 mg PO HS 10/07/23 10/07/23 History Omeprazole [PriLOSEC] 40 mg PO AC-BRKFST #7 cap 10/08/23 Rx Allergies Allergy/AdvReac Type Severity Reaction Status Date / Time No Known Allergies Allergy Verified 10/07/23 19:36 Surgical - Exam Vital Signs Temp Pulse Resp BP Pulse Ox 99.1 F 143 H 16 137/84 99 10/07/23 17:15 10/07/23 17:15 10/07/23 17:15 10/07/23 17:15 10/07/23 17:15 Results - Labs 10/08/23 06:45 10/07/23 18:32 Abnormal Lab Results - Last 24 Hours (Table) 10/07/23 10/07/23 10/07/23 Range/Units 18:32 18:32 18:32 WBC 17.7 H (3.8-10.6) k/uL Hgb 17.9 H (13.0-17.5) gm/dL Neutrophils # 16.3 H (1.3-7.7) k/uL Lymphocytes # 0.7 L (1.0-4.8) k/uL Carbon Dioxide 17 L (22-30) mmol/L Glucose 134 H (74-99) mg/dL Total Bilirubin 1.5 H (0.2-1.3) mg/dL Procalcitonin 0.34 H (0.02-0.09) ng/mL Ur Specific [place] (1.001-1.035) Urine Protein (Negative) Amorphous Sediment (None) /hpf Urine Bacteria (None) /hpf Hyaline Casts (0-2) /lpf Urine Mucus (None) /hpf 10/08/23 10/08/23 Range/Units 04:00 06:45 WBC (3.8-10.6) k/uL Hgb (13.0-17.5) gm/dL Neutrophils # (1.3-7.7) k/uL Lymphocytes # 0.4 L (1.0-4.8) k/uL Carbon Dioxide (22-30) mmol/L Glucose (74-99) mg/dL Total Bilirubin (0.2-1.3) mg/dL Procalcitonin (0.02-0.09) ng/mL Ur Specific [place] >1.050 H (1.001-1.035) Urine Protein 1+ H (Negative) Amorphous Sediment Rare H (None) /hpf Urine Bacteria Rare H (None) /hpf Hyaline Casts 3 H (0-2) /lpf Urine Mucus Few H (None) /hpf Diabetes panel 10/07/23 Range/Units 18:32 Sodium 139 (137-145) mmol/L Potassium 4.9 (3.5-5.1) mmol/L Chloride 103 (98-107) mmol/L Carbon Dioxide 17 L (22-30) mmol/L BUN 19 (9-20) mg/dL Creatinine 0.91 (0.66-1.25) mg/dL Glucose 134 H (74-99) mg/dL Calcium 10.2 (8.4-10.2) mg/dL AST 29 (17-59) U/L ALT 43 (4-49) U/L Alkaline Phosphatase 71 (38-126) U/L Total Protein 7.9 (6.3-8.2) g/dL Albumin 4.9 (3.5-5.0) g/dL Calcium panel 10/07/23 Range/Units 18:32 Calcium 10.2 (8.4-10.2) mg/dL Albumin 4.9 (3.5-5.0) g/dL Pituitary panel 10/07/23 Range/Units 18:32 Sodium 139 (137-145) mmol/L Potassium 4.9 (3.5-5.1) mmol/L Chloride 103 (98-107) mmol/L Carbon Dioxide 17 L (22-30) mmol/L BUN 19 (9-20) mg/dL Creatinine 0.91 (0.66-1.25) mg/dL Glucose 134 H (74-99) mg/dL Calcium 10.2 (8.4-10.2) mg/dL Adrenal panel 10/07/23 Range/Units 18:32 Sodium 139 (137-145) mmol/L Potassium 4.9 (3.5-5.1) mmol/L Chloride 103 (98-107) mmol/L Carbon Dioxide 17 L (22-30) mmol/L BUN 19 (9-20) mg/dL Creatinine 0.91 (0.66-1.25) mg/dL Glucose 134 H (74-99) mg/dL Calcium 10.2 (8.4-10.2) mg/dL Total Bilirubin 1.5 H (0.2-1.3) mg/dL AST 29 (17-59) U/L ALT 43 (4-49) U/L Alkaline Phosphatase 71 (38-126) U/L Total Protein 7.9 (6.3-8.2) g/dL Albumin 4.9 (3.5-5.0) g/dL
[2023-10-08 14:23] VITALS: BP 123/73; PULSE 114; RESP 18; TEMP 98.9
[2023-10-08] MEDS ORDERED: diphenhydrAMINE 25 MG CAP PO SCH (21:00)
[2023-10-08] MEDS ORDERED: CHOLECALCIFEROL 25 MCG (1000 IU) TABLET PO SCH (21:00)
[2023-10-08] MEDS ORDERED: MULTIVITAMINS, THERA 1 EACH TAB PO SCH (21:00)
== END 2023-10-08 15:26 | disposition home or self-care (01) ==
LOC: EC 17:14 → 6NMEDSUR 22:38
PROVIDERS: ADMIT Hospitalist; ATTEND Hospitalist
DX: K52.9 Noninfective gastroenteritis and colitis, unspecified (principal); K40.90 Unilateral inguinal hernia, without obstruction or gangrene, not specified as recurrent; D72.829 Elevated white blood cell count, unspecified; R00.0 Tachycardia, unspecified; I86.1 Scrotal varices; R09.02 Hypoxemia; E66.9 Obesity, unspecified; Z68.31 Body mass index [BMI] 31.0-31.9, adult; Z20.822 Contact with and (suspected) exposure to COVID-19; Z79.51 Long term (current) use of inhaled steroids; Z79.899 Other long term (current) drug therapy
CPT/HCPCS: 96361; 96365; 96366; 96375; 99285; 36415; 93005; 85379; 80053; 82150; 83690; 83735; 84484; 85025 ×2; 85610; 85730; 81001; 87040; 84145; 87636; 71046; 93975; 76870; 74177; G0378; J2270; J2405; J0456; J0696; J1885; Q9967

== ENCOUNTER 2024-08-16 08:03 | Day surgery (SDC) | payer OTHER ==
[2024-08-15 09:49] VITALS: BMI 31.1
[2024-08-16 08:23] VITALS: TEMP 97
[2024-08-16] MEDS: IV FLUID CONTINUATION 1,000 ML IV ONE (08:32)
[2024-08-16] MEDS: LACTATED RINGERS 1,000 ML IV SCH (08:33)
[2024-08-16] MEDS ORDERED: PROPOFOL 10 MG/ML 20 ML VIAL IV ONE (08:52)
[2024-08-16] MEDS ORDERED: LIDOCAINE 1% INJ 10MG/ML (20 ML MDV) ONE (08:52)
--- NOTE | 2024-08-16 09:16 | P.PCN ---
Date of Procedure: 08/16/24 Procedure(s) Performed: BRIEF HISTORY: Patient is a 54-year-old pleasant white male scheduled for an elective colonoscopy as a part of a evaluation of history of colon polyps and family history of colon cancer. His dad was diagnosed with colon cancer at age 36. PROCEDURE PERFORMED: Colonoscopy snare polypectomy. PREOPERATIVE DIAGNOSIS: History of colon polyps and family history of colon cancer. IV sedation per Anesthesia. PROCEDURE: After informed consent was obtained, the patient, was brought into the endoscopy unit. IV sedation was administered by Anesthesia under continuous monitoring. Digital rectal examination was normal. Initially the Olympus CF-160 flexible video colonoscope was then inserted in the rectum, gradually advanced into the cecum without any difficulty. Careful examination was performed as the scope was gradually being withdrawn. Ileocecal valve and the appendiceal orifice were visualized and appeared normal. Prep was excellent. Mucosa of the cecum, ascending colon, appeared normal. The transverse colon there was a 6 mm sessile polyp removed by cold snare polypectomy. In the descending colon there was a 4 mm polyp removed by cold snare polypectomy. In the sigmoid colon there was a 3 mm polyp removed by cold snare polypectomy. Rest of the transverse colon, descending colon, sigmoid colon, and rectum appeared normal. Retroflexion was performed in the rectum and no lesions were seen. The patient tolerated the procedure well. IMPRESSION: 6 mm transverse colon polyp status post cold snare polypectomy 4 mm descending colon polyp status post cold snare polypectomy 4 mm sigmoid colon polyp status post cold snare polypectomy RECOMMENDATIONS: Findings of this examination were discussed with the patient as well as his family. Was advised to follow with the biopsy results and have repeat colonoscopy in 5 years because of the family history of colon cancer
[2024-08-16 10:07] VITALS: BP 119/84; PULSE 86; RESP 18
== END 2024-08-16 10:09 | disposition home or self-care (01) ==
LOC: ORWHC2ENDO 08:03
PROVIDERS: ATTEND Internal Medicine Gastroenterology
CPT/HCPCS: 45385; 88305